=== PATIENT | female | born 1945 | race Caucasian/White ===

== ENCOUNTER 2016-10-24 18:44 | Inpatient (IN) | payer SELFPAY ==
[~2016-10-24] VITALS: Ht 162.6 cm; Wt 65.1 kg
[2016-10-24] MEDS ORDERED: NITROGLYCERIN 2% 1 GM OINT PKT TD STA (19:45)
[2016-10-24] MEDS ORDERED: ASPIRIN 325 MG TAB PO STA (19:45)
[2016-10-24] MEDS ORDERED: METO-448 PO (20:17)
[2016-10-24] MEDS ORDERED: BENA40TA41 PO (20:17)
[2016-10-24] MEDS ORDERED: ASPI-664 PO (20:18)
[2016-10-24 21:06] LABS: ADD SCAN DIFF NO
[2016-10-24 21:08] LABS: BASOPHILS % 0.4 % (0.0-2.0); EOSINOPHILS # 0.2 10^3/ul (0.0-0.5); EOSINOPHILS % 2.2 % (0.0-7.0); HEMOGLOBIN 12.3 g/dl (12.0-16.0); LYMPHOCYTES # 2.4 10^3/ul (0.8-2.9); LYMPHOCYTES % 30.5 % (15.0-51.0); MEAN CORPUSCULAR HEMOGLOBIN 30.8 pg (29.0-33.0); MEAN CORPUSCULAR HGB CONC 33.2 g/dl (32.0-37.0); MEAN CORPUSCULAR VOLUME 92.5 fl (82.0-101.0); MEAN PLATELET VOLUME 9.5 fl (7.4-10.4); MONOCYTE # 0.6 10^3/ul (0.3-0.9); MONOCYTES % 7.6 % (0.0-11.0); NEUTROPHIL # 4.6 10^3/ul (1.6-7.5); PLATELET COUNT 272 10^3/UL (140-415); WHITE BLOOD COUNT 7.8 10^3/ul (4.8-10.8)
[2016-10-24 21:10] VITALS: TEMP 99.8
--- NOTE | 2016-10-24 21:12 | RADRPT ---
PROCEDURE: XR Chest. CLINICAL INDICATION: Chest Pain. TECHNIQUE: Single frontal view of the chest. COMPARISON: 12/30/2008. FINDINGS: Cardiomegaly. Atherosclerotic calcifications in the thoracic aorta. The patient body habitus and p ortable technique accentuates lung base pulmonary vascular markings. Likely changes of centrolobula r emphysema.. The lungs are clear. No signs of pleural fluid or pneumothorax are seen. The osseous s tructures and soft tissues are unremarkable. IMPRESSION: No evidence for active cardiopulmonary disease. RPTAT: [facility] Physician Kailyn Date Time Electronically viewed and signed by Physician Kailyn on 10/24/2016 21:12 RS/
[2016-10-24 21:42] LABS: ANION GAP 10 (8-16); BLOOD UREA NITROGEN 18 mg/dl (7-20); CALCIUM 9.5 mg/dl (8.4-10.2); CARBON DIOXIDE 27 mmol/L (21-31); CHLORIDE 107 mmol/L (97-110); CREATININE 0.91 mg/dl (0.44-1.00); GLUCOSE 118 mg/dl (70-220); SODIUM 140 mmol/L (135-144)
--- NOTE | 2016-10-24 21:52 | ERA ---
ER Documentation Chief Complaint Date/Time DATE: 10/24/16 TIME: 21:48 Chief Complaint chest pain radaiting to right face and neck x 1 day HPI This is a 70-year-old female is complaining of chest pain today described as a chest pressure that radiates up the right side of her neck into her right jaw. She also has symptoms of shortness of breath and a little bit of dizziness. No palpitations or syncope. No diaphoresis. Denies any recent cough or trauma. She currently is pain-free. ROS All systems reviewed and are negative except as per history of present illness. Medications Home Meds Reported Medications Aspirin* (Aspirin* EC) 81 Mg Tablet.dr, 81 MG PO QHS, TAB 10/24/16 Benazepril Hcl* (Benazepril Hcl*) 40 Mg Tablet, 40 MG PO DAILY Y for PRN, #30 TAB 10/24/16 Metoprolol Tartrate* (Lopressor*) 25 Mg Tab, 25 MG PO BID, #60 TAB 10/24/16 Allergies Allergies: Coded Allergies: No Known Allergy (Verified , 10/24/16) PMhx/Soc Medical and Surgical Hx: pt denies Surgical Hx Hx Cardiac Disorders: Yes (HTN) Hx Alcohol Use: No Hx Substance Use: No Hx Tobacco Use: Yes (5 cig a day) Smoking Status: Current every day smoker FmHx Family History: No coronary disease Physical Exam Vitals Vital Signs Date Time Temp Pulse Resp B/P Pulse Ox O2 Delivery O2 Flow Rate FiO2 10/24/16 18:49 99.8 65 20 186/86 97 Physical Exam Const: Well-developed, well-nourished Head: Atraumatic, normocephalic Eyes: Normal Conjunctiva, PERRLA, EOMI, normal sclera, no nystagmus ENT: Normal External Ears, Nose and Mouth, moist mucus membranes. Neck: Full range of motion. No meningismus, no lymphadenopathy. Resp: Clear to auscultation bilaterally, no wheezing, rhonchi, rales Cardio: Regular rate and rhythm, no murmurs, S1 S2 present Abd: Soft, non tender x 4, non distended. Normal bowel sounds, no guarding or rebound, no pulsitile abdominal masses or bruits Skin: No petechiae or rashes, no ecchymosis , no maculopapular rash Back: No midline or flank tenderness Ext: No cyanosis, or edema, FROM x 4, normal inspection, neurovascularly intact x 4 Neur: Awake and alert, STR 5/5 x 4, sensation intact x 4, no focal findings, cerebellum intact Psych: Normal Mood and Affect Result Diagram: 10/24/161944 Results 24 hrs Laboratory Tests Test 10/24/16 19:45 White Blood Count 7.810^3/ul Red Blood Count 4.0010^6/ul Hemoglobin 12.3g/dl Hematocrit 37.0% Mean Corpuscular Volume 92.5fl Mean Corpuscular Hemoglobin 30.8pg Mean Corpuscular Hemoglobin Concent 33.2g/dl Red Cell Distribution Width 14.0% Platelet Count 85802^3/UL Mean Platelet Volume 9.5fl Neutrophils % 59.0% Lymphocytes % 30.5% Monocytes % 7.6% Eosinophils % 2.2% Basophils % 0.4% Nucleated Red Blood Cells % 0.0/100WBC Neutrophils # 4.610^3/ul Lymphocytes # 2.410^3/ul Monocytes # 0.610^3/ul Eosinophils # 0.210^3/ul Basophils # 0.010^3/ul Nucleated Red Blood Cells # 0.010^3/ul Current Medications Medications (Trade) Dose Ordered Sig/Alfredo Route PRN Reason Start Time Stop Time Status Last Admin Dose Admin Aspirin (Aspirin) 325 mg ONCE STAT PO 10/24/16 19:45 10/24/16 19:48 DC 10/24/16 20:37 Nitroglycerin (Nitroglycerin 2% Oint) 1 inch ONCE STAT TD 10/24/16 19:45 10/24/16 19:48 DC 10/24/16 20:37 Procedures/MDM EKG: Rate/Rhythm: Normal sinus rhythm heart rate 72, left bundle branch block QRS, ST, QT: NORMAL [place], QRS, QT] Impression: [Abnormal EKG PROCEDURE: XR Chest. CLINICAL INDICATION: Chest Pain. TECHNIQUE: Single frontal view of the chest. COMPARISON: 12/30/2008. FINDINGS: Cardiomegaly. Atherosclerotic calcifications in the thoracic aorta. The patient body habitus and portable technique accentuates lung base pulmonary vascular markings. Likely changes of centrolobular emphysema.. The lungs are clear. No signs of pleural fluid or pneumothorax are seen. The osseous structures and soft tissues are unremarkable. IMPRESSION: No evidence for active cardiopulmonary disease. RPTAT: [facility] Juan Webber Physician Date Time Electronically viewed and signed by Juan Webber Physician on 10/24/2016 21:12 RS/ CC: LEO MARSHALL DO Patient's symptoms are concerning for cardiac cause will require inpatient workup and continuous monitoring. Further w/u for ischemia, arrhythmia, PE or dissection will be deferred to the inpatient team. Accepting Care Team: Current data and ongoing care discussed. Time: Time of admission Primary Provider: [XOXOXO] Consulting: [XOXOXO] Outstanding Data: none Departure Diagnosis: Primary Impression: Chest pain Qualified Code: R07.9 - Chest pain, unspecified type Condition: Stable LEO MARSHALL DO Oct 24, 2016 21:52
[2016-10-24 21:56] LABS: TROPONIN-I < 0.012 ng/ml (0.00-0.12)
[2016-10-24] MEDS ORDERED: ACETAMINOPHEN 325 MG TAB PO PRN ×2 (22:00→22:30)
[2016-10-24] MEDS ORDERED: ONDANSETRON 4 MG INJ IV PRN (22:00)
--- NOTE | 2016-10-24 22:13 | HP ---
Date/Time of Note Date/Time of Note DATE: 10/24/16 TIME: 22:12 Assessment/Plan VTE Prophylaxis VTE Prophylaxis Intervention: SCD's Lines/Catheters IV Catheter Type (from Nrsg): Saline Lock Assessment/Plan Chief Complaint/Hosp Course This is a 70 female being admitted to the telemetry floor for: #1 chest pain: rule out acs versus stress. No current chest pain at this time. Trend cardiac enzymes, first set negative. EKG shows left bundle branch block. Echo in the AM. Cardiology consult. #2 HTN: continue home meds. Monitor. #3 history of breast cancer: Stable. Follow-up as outpatient is indicated with hematology. #4 DVT and GI prophylaxis: SCDs, Protonix Problems: HPI/ROS Admit Date/Time Admit Date/Time Hx of Present Illness Chief complaint: Chest pain This is a 70-year-old female is complaining of chest pain today described as a chest pressure that radiated up the right side of her neck into her right jaw. She also had symptoms of shortness of breath and a little bit of dizziness. This episode only occurred one time. No palpitations or syncope. No diaphoresis. Denies any recent cough or trauma. She currently is pain-free. Patient does state that she has been dealing with stress at work lately. Allergies: NKDA Medications: See JOHN MADRID Const: As per HPI Eyes : No pain discharge or redness or change in visual acuity ENT: No pain, sore throat, congestion, congestion, dysphagia or discharge Respiratory: As per HPI Cardiovascular: As per HPI GI : no change in appetite, abdominal pain, nausea, vomiting, diarrhea, constipation, or change in the color his stool Genitourinary: No dysuria, hematuria, flank pain , discharge or CVA tenderness Musculoskeletal: No joint pain, back pain, neck pain, restricted range of motion in neck or joints Skin: No rash, bruising or hives Neuro: No headache, dizziness, syncope, seizure, focal weakness Endocrine: No polyuria, polydipsia, temperature intolerance Psych: No hallucination, depression, anxiety or suicidal ideation PMH/Family/Social Past Medical History Breast cancer, hypertension Past Surgical History Right breast lumpectomy 2009 Family History Significant Family History: cancer (Mom: Cervical cancer), hypertension (Mom) Social History Alcohol Use: none Smoking Status: Current every day smoker (5 cigarettes a day 40 years) Drug Use: none Exam/Review of Systems Vital Signs Vitals Vital Signs Date Time Temp Pulse Resp B/P Pulse Ox O2 Delivery O2 Flow Rate FiO2 10/24/16 18:49 99.8 65 20 186/86 97 Exam Exam General: Patient is a pleasant 70-year-old female laying in bed in no acute distress. HEENT: Atraumatic, normocephalic. The pupils are equal, round and reactive. Extraocular motor are intact Neck: Supple with full range of motion. No rigidity or meningismus Chest: Nontender Lungs: Clear to auscultation bilaterally no crackles rales or wheezing Heart: Normal S1-S2, Regular rhythm and rate. No appreciable murmur Abdomen: Soft , nontender, nondistended , bowel sounds are present. No guarding no rebound tenderness , No masses or organomegaly. No costovertebral temporal angle mass Extremities: Normal to inspection, no edema no cyanosis Neurologic: Normal mental status, speech normal, cranial nerves II through XII are intact, motor and sensory are intact, no focal weakness Additional Comments EKG: Rate/Rhythm: Normal sinus rhythm heart rate 72, left bundle branch block QRS, ST, QT: NORMAL [place], QRS, QT] I as per ED physician documentation PROCEDURE: XR Chest. CLINICAL INDICATION: Chest Pain. TECHNIQUE: Single frontal view of the chest. COMPARISON: 12/30/2008. FINDINGS: Cardiomegaly. Atherosclerotic calcifications in the thoracic aorta. The patient body habitus and portable technique accentuates lung base pulmonary vascular markings. Likely changes of centrolobular emphysema.. The lungs are clear. No signs of pleural fluid or pneumothorax are seen. The osseous structures and soft tissues are unremarkable. IMPRESSION: No evidence for active cardiopulmonary disease. RPTAT: [facility] Physician Kailyn Date Time Electronically viewed and signed by Physician Kailyn on 10/24/2016 21:12 Labs Result Diagram: 10/24/16194410/24/161944 ZOE KEVIN Oct 24, 2016 22:13
[2016-10-24] MEDS ORDERED: morphine 2 MG INJ IV PRN (22:30)
[2016-10-24] MEDS ORDERED: DOCUSATE SODIUM 100 MG CAP PO PRN (22:30)
[2016-10-24] MEDS ORDERED: BISACODYL (EC) 5 MG TAB PO PRN (22:30)
[2016-10-24] MEDS ORDERED: BENAZEPRIL 40 MG TAB PO PRN (22:30)
[2016-10-24] MEDS ORDERED: NACL 0.9% 3 ML SYG IV SCH (22:30)
[2016-10-24 23:05] VITALS: PULSE 56
[2016-10-24] MEDS: SOD CHLORIDE 0.9% 1,000 ML IV SCH (23:42)
[2016-10-24] MEDS: METOPROLOL 25 MG TAB PO SCH (23:56)
[2016-10-25] VITALS (11 sets, daily range): BP systolic 166–209; BP diastolic 77–102; PULSE 53–60; RESP 19; Ht 162.6 cm; Wt 65.1 kg
[2016-10-25 01:44] LABS: CREATINE KINASE 35 IU/L (23-200)
[2016-10-25 01:55] LABS: CK-MB 0.79 ng/ml (0.0-2.4)
[2016-10-25 02:47] LABS: TROPONIN-I < 0.012 ng/ml (0.00-0.12)
[2016-10-25] MEDS: PANTOPRAZOLE (EC) 40 MG TAB PO SCH (06:16)
[2016-10-25 07:53] LABS: ADD SCAN DIFF NO
[2016-10-25 08:01] LABS: BASOPHILS % 0.4 % (0.0-2.0); EOSINOPHILS # 0.1 10^3/ul (0.0-0.5); EOSINOPHILS % 0.8 % (0.0-7.0); HEMATOCRIT 37.8 % (37.0-47.0); HEMOGLOBIN 12.4 g/dl (12.0-16.0); LYMPHOCYTES # 1.1 10^3/ul (0.8-2.9); LYMPHOCYTES % 11.2 % (15.0-51.0); MEAN CORPUSCULAR HEMOGLOBIN 30.5 pg (29.0-33.0); MEAN CORPUSCULAR HGB CONC 32.8 g/dl (32.0-37.0); MEAN CORPUSCULAR VOLUME 93.1 fl (82.0-101.0); MONOCYTE # 0.4 10^3/ul (0.3-0.9); MONOCYTES % 4.1 % (0.0-11.0); NEUTROPHIL # 8.5 10^3/ul (1.6-7.5); NEUTROPHILS % 83.2 % (39.0-77.0); PLATELET COUNT 271 10^3/UL (140-415); RED BLOOD COUNT 4.06 10^6/ul (4.20-5.40); RED CELL DISTRIBUTION WIDTH 13.8 % (11.5-14.5); WHITE BLOOD COUNT 10.2 10^3/ul (4.8-10.8)
[2016-10-25] MEDS: METOPROLOL 25 MG TAB PO SCH ×2 (09:43→20:44)
[2016-10-25 09:49] LABS: CREATINE KINASE 37 IU/L (23-200)
[2016-10-25 09:54] LABS: ALBUMIN 4.3 g/dl (3.3-4.9); ALBUMIN/GLOBULIN RATIO 2.04; BILIRUBIN,INDIRECT 0.3 mg/dl (0-1.1); BILIRUBIN,TOTAL 0.3 mg/dl (0.2-1.3); CALCIUM 8.9 mg/dl (8.4-10.2); CHOL/HDL RATIO 4.2 RATIO; CREATININE 0.75 mg/dl (0.44-1.00); MAGNESIUM 1.6 mg/dl (1.7-2.5); POTASSIUM 4.4 mmol/L (3.5-5.1); TOTAL PROTEIN 6.4 g/dl (6.1-8.1)
[2016-10-25 10:01] LABS: CK-MB 0.82 ng/ml (0.0-2.4)
[2016-10-25 10:03] LABS: TROPONIN-I < 0.012 ng/ml (0.00-0.12)
[2016-10-25 12:49] LABS: THYROID STIMULATING HORMONE 0.465 MIU/L (0.465-4.680)
[2016-10-25] MEDS: SOD CHLORIDE 0.9% 1,000 ML IV SCH (13:28)
[2016-10-25] MEDS ORDERED: MAGNESIUM SULFATE 2 GM/50 ML 50 ML IVPB ONE (13:30)
--- NOTE | 2016-10-25 18:22 | CONS ---
Date/Time of Note Date/Time of Note DATE: 10/25/16 TIME: 18:17 Assessment/Plan Assessment/Plan Chief Complaint/Hosp Course IMp: 1. Chest pain-atypical 2. Bradycardia 3. HTN-uncontrolled 4.H/O breast ca Recc: -tele -serial ecg's -DONY -start standing anti-hypertensives -chcek fasting lipid panel -PRN SL NTG -check echo -will consider stress for ongoing sx Problems: Consultation Date/Type/Reason Admit Date/Time Date of Consultation: Oct 25, 2016 Type of Consultation: cardiology Reason for Consultation chest pain Referring Provider: JAYCOB NIETO Hx of Present Illness 70 y/o female with h/o HTN, breast ca p/w cp, poorly described, at rest with radiation to face. NO longer having chest pain at thie time. Trop negative. NO ECG in chart for my review Constitutional: no complaints Eyes: no complaints ENT: no complaints Respiratory: no complaints Cardiovascular: chest pain Gastrointestinal: no complaints Genitourinary: no complaints Musculoskeletal: bone/joint pain Skin: no complaints Neurologic: no complaints Endocrine: no complaints Past Medical History Medical History: hypertension, other (breast ca) Past Surgical History Past Surgical Hx: no surgical history Family History Significant Family History: no pertinent family hx Social History Alcohol Use: none Smoking Status: Current every day smoker (5 cigarettes a day 40 years) Drug Use: none Exam/Review of Systems Vital Signs Vitals Vital Signs Date Time Temp Pulse Resp B/P Pulse Ox O2 Delivery O2 Flow Rate FiO2 10/25/16 16:00 60 10/25/16 14:00 Bag Valve Mask 10/25/16 11:43 98.3 19 174/81 98 Intake and Output 10/24/16 10/24/16 10/25/16 15:00 23:00 07:00 Output Total 200 ml Balance -200 ml Exam Constitutional: alert Psych: no complaints Head: normocephalic ENMT: mucosa pink and moist Neck: jvd (9 cm water), supple Respiratory: diminished breath sounds (at bases/B) Cardiovascular: regular rate and rhythm Gastrointestinal: non-tender, soft Musculoskeletal: muscle tone (normal) Extremities: edema (none) Results Result Diagram: 10/25/16 0702 10/25/16 0702 Results 24 hrs Laboratory Tests Test 10/24/16 19:45 10/25/16 00:40 10/25/16 07:02 White Blood Count 7.8 10.2 # Red Blood Count 4.00 L 4.06 L Hemoglobin 12.3 12.4 Hematocrit 37.0 37.8 Mean Corpuscular Volume 92.5 93.1 Mean Corpuscular Hemoglobin 30.8 30.5 Mean Corpuscular Hemoglobin Concent 33.2 32.8 Red Cell Distribution Width 14.0 13.8 Platelet Count 272 271 Mean Platelet Volume 9.5 10.0 Neutrophils % 59.0 83.2 H Lymphocytes % 30.5 11.2 L Monocytes % 7.6 4.1 Eosinophils % 2.2 0.8 Basophils % 0.4 0.4 Nucleated Red Blood Cells % 0.0 0.0 Neutrophils # 4.6 8.5 H Lymphocytes # 2.4 1.1 Monocytes # 0.6 0.4 Eosinophils # 0.2 0.1 Basophils # 0.0 0.0 Nucleated Red Blood Cells # 0.0 0.0 Sodium Level 140 138 Potassium Level 4.0 4.4 Chloride Level 107 108 Carbon Dioxide Level 27 22 Anion Gap 10 12 Blood Urea Nitrogen 18 15 Creatinine 0.91 0.75 Glucose Level 118 132 Calcium Level 9.5 8.9 Troponin I < 0.012 < 0.012 < 0.012 Creatine Kinase 35 37 Creatine Kinase Index 2.3 2.2 Creatinine Kinase MB (Mass) 0.79 0.82 Magnesium Level 1.6 L Total Bilirubin 0.3 Direct Bilirubin 0.00 Indirect Bilirubin 0.3 Aspartate Amino Transf (AST/SGOT) 17 Alanine Aminotransferase (ALT/SGPT) 27 Alkaline Phosphatase 125 H Total Protein 6.4 Albumin 4.3 Globulin 2.10 Albumin/Globulin Ratio 2.04 Triglycerides Level 160 H Cholesterol Level 156 LDL Cholesterol, Calculated 87 HDL Cholesterol 37 Cholesterol/HDL Ratio 4.2 Thyroid Stimulating Hormone (TSH) 0.465 Medications Medications Current Medications Aspirin (Halfprin) 81 mg QHS PO ; Start 10/25/16 at 21:00 Benazepril HCl 40 mg 40 mg DAILY PRN PO PRN Last administered on 10/25/16 05: 06; Admin Dose 40 MG; Start 10/24/16 at 22:30 Sodium Chloride (NS) 1,000 ml @ 70 mls/hr [id number] IV Last administered on 10/25 13:28; Admin Dose 70 MLS/HR; Start 10/24/16 at 22:07 Acetaminophen (Tylenol Tab) 650 mg Q6H PRN PO PAIN LEVEL 1-3 OR FEVER; Start at 22:30 Morphine Sulfate (morphine) 2 mg Q4H PRN IV PAIN LEVEL 7-10; Start 10/24/16 at 22:30 Docusate Sodium (Colace) 100 mg Q12H PRN PO CONSTIPATION; Start 10/24/16 at 22: 30 Bisacodyl (Dulcolax) 5 mg DAILY PRN PO CONSTIPATION; Start 10/24/16 at 22:30 Pantoprazole (Protonix Tab) 40 mg DAILY@06 PO Last administered on 10/25/16t 06 :16; Admin Dose 40 MG; Start 10/25/16 at 06:00 Metoprolol Tartrate (Lopressor) 12.5 mg BID PO ; Start 10/25/16 at 21:00 RADHA DORAN Oct 25, 2016 18:22
[2016-10-25] MEDS ORDERED: hydrALAzine 20 MG INJ IV PRN (18:30)
[2016-10-25] MEDS ORDERED: NITROGLYCERIN (SL) 0.4 MG TAB SL PRN (18:30)
--- NOTE | 2016-10-25 20:03 | RADRPT ---
Echocardiogram Report Patient Name: JUANCHO BAUM Gender: Female Date: 1945 Study Date: 25-Oct-2016 Jointer Machine: Shree Leal [facility] Location: [id number] Ref. Physician: ZOE KEVIN Quality: Adequate Procedures: Transthoracic echocardiogram with complete 2D, M-Mode, and doppler examination. Indications: Chest Pain. 2D/M Mode Doppler Measurement Value Normal Ranges Measurement Value Normal Ranges LVIDd 2D 4.7 3.5 - 5.6 cm DENYS Vmax 1.4 cm2 LVIDs 2D 2.8 2.1 - 4.1 cm DENYS VTI 1.5 cm2 FS 2D 39.8 % AV Mean Abhijeet 1.4 m/sec LVPWd 2D 1.0 0.6 - 1.1 cm AV Mean PG 9.0 mmHg IVSd 2D 1.3 0.6 - 1.1 cm AV Peak Abhijeet 2.0 m/sec IVS/LVPW 2D 1.3 AV Peak PG 16.0 mmHg AoR Diam 2D 2.5 2.0 - 3.7 cm AV VTI 48.2 cm LA/Ao 2D 1 0 - 1 LVOT Mean Abhijeet 1.0 m/sec EDV 2D 105.0 cm3 LVOT Mean PG 5.0 mmHg ESV 2D 22.9 cm3 LVOT Peak Abhijeet 1.4 m/sec LA Dimen 2D 3.0 2.3 - 4.0 cm LVOT Peak PG 8.0 mmHg LVOT Diam 1.6 cm LVOT VTI 34.8 cm LVOT Area 2.0 cm2 MV E Peak Abhijeet 0.7 m/sec MV A Peak Abhijeet 1.1 m/sec MV E/A 0.6 MV Decel Time 211 msec MV E/A 0.6 TR Peak Abhijeet 2.7 m/sec TR Peak PG 30.0 mmHg RVSP 33.0 mmHg Findings Left Ventricle: Normal left ventricular systolic function. Normal left ventricular cavity size. Moderate concentric left ventricular hypertrophy. Ejection fraction is visually estimated at 60 %. Tissue Doppler/Mitral Doppler indices are consistent with impaired relaxation (Stage I diastolic dysfunction). Right Ventricle: Normal right ventricular size. Normal right ventricular systolic function. Left Atrium: The left atrium is normal in size. Right Atrium: The right atrium is normal in size. Mitral Valve: Mitral valve leaflets appear mildly thickened. Mild mitral annular calcification. Trace mitral regurgitation. Aortic Valve: Aortic valve Max velocity 2.00 m/sec. Max PG 16.00 mmHg. Mean PG 9.00 mmHg. Aortic valve area 1.45 cm2. Aortic sclerosis without stenosis. Trace aortic valve regurgitation. Tricuspid Valve: Normal appearance of the tricuspid valve. Estimated peak PA systolic pressure 33 mmHg. There is mild tricuspid regurgitation. Pulmonic Valve: Normal pulmonic valve appearance. Pericardium: Normal pericardium with no significant pericardial effusion. Aorta: Normal aortic root. IVC: Normal size and normal respiratory collapse consistent with normal right atrial pressure. Conclusions 1.Normal left ventricular systolic function. Normal left ventricular cavity size. Moderate concentric left ventricular hypertrophy. Ejection fraction is visually estimated at 60 %. Tissue Doppler/Mitral Doppler indices are consistent with impaired relaxation (Stage I diastolic dysfunction). 2.Mitral valve leaflets appear mildly thickened. Mild mitral annular calcification. Trace mitral regurgitation. 3.Aortic valve Max velocity 2.00 m/sec. Max PG 16.00 mmHg. Mean PG 9.00 mmHg. Aortic valve area 1.45 cm2. Aortic sclerosis without stenosis. Trace aortic valve regurgitation. 4.Normal appearance of the tricuspid valve. Estimated peak PA systolic pressure 33 mmHg. There is mild tricuspid regurgitation. Electronically Signed By: Favian Chung 25-Oct-2016 20:02:41 -0700 Patient Name: JUANCHO BAUM Study Date: 25-Oct-2016 [id number]
--- NOTE | 2016-10-25 20:40 | PN ---
Date/Time of Note Date/Time of Note DATE: 10/25/16 TIME: 20:24 Assessment/Plan VTE Prophylaxis VTE Prophylaxis Intervention: SCD's Lines/Catheters IV Catheter Type (from Nrsg): Peripheral IV Urinary Cath still in place: No Assessment/Plan Assessment/Plan This is a 70 female being admitted to the telemetry floor for: #1 chest pain: ACS ruled out / abn ekg / ?stress test, await cardio recs #2 HTN: continue home meds. Monitor. #3 history of breast cancer: Stable. Follow-up as outpatient is indicated with hematology. #4 DVT and GI prophylaxis: SCDs, Protonix Subjective 24 Hr Interval Summary Free Text/Dictation patient states she has been having CP intermittently for a month lauri with exertion and is located in mid chest and radiates to back. She states it doesn' t feel like reflux pain. Exam/Review of Systems Vital Signs Vitals Vital Signs Date Time Temp Pulse Resp B/P Pulse Ox O2 Delivery O2 Flow Rate FiO2 10/25/16 19:51 98.5 55 19 170/82 96 10/25/16 14:00 Bag Valve Mask Intake and Output 10/24/16 10/24/16 10/25/16 15:00 23:00 07:00 Output Total 200 ml Balance -200 ml Exam Constitutional: alert, oriented Head: atraumatic, normocephalic Neck: non-tender, supple Respiratory: clear to auscultation Cardiovascular: regular rate and rhythm Gastrointestinal: nl liver, spleen, non-tender, soft Extremities: normal pulses Results Result Diagram: 10/25/16 0702 10/25/16 0702 Results 24 hrs Laboratory Tests Test 10/25/16 00:40 10/25/16 07:02 Creatine Kinase 35 37 Creatine Kinase Index 2.3 2.2 Creatinine Kinase MB (Mass) 0.79 0.82 Troponin I < 0.012 < 0.012 White Blood Count 10.2 # Red Blood Count 4.06 L Hemoglobin 12.4 Hematocrit 37.8 Mean Corpuscular Volume 93.1 Mean Corpuscular Hemoglobin 30.5 Mean Corpuscular Hemoglobin Concent 32.8 Red Cell Distribution Width 13.8 Platelet Count 271 Mean Platelet Volume 10.0 Neutrophils % 83.2 H Lymphocytes % 11.2 L Monocytes % 4.1 Eosinophils % 0.8 Basophils % 0.4 Nucleated Red Blood Cells % 0.0 Neutrophils # 8.5 H Lymphocytes # 1.1 Monocytes # 0.4 Eosinophils # 0.1 Basophils # 0.0 Nucleated Red Blood Cells # 0.0 Sodium Level 138 Potassium Level 4.4 Chloride Level 108 Carbon Dioxide Level 22 Anion Gap 12 Blood Urea Nitrogen 15 Creatinine 0.75 Glucose Level 132 Calcium Level 8.9 Magnesium Level 1.6 L Total Bilirubin 0.3 Direct Bilirubin 0.00 Indirect Bilirubin 0.3 Aspartate Amino Transf (AST/SGOT) 17 Alanine Aminotransferase (ALT/SGPT) 27 Alkaline Phosphatase 125 H Total Protein 6.4 Albumin 4.3 Globulin 2.10 Albumin/Globulin Ratio 2.04 Triglycerides Level 160 H Cholesterol Level 156 LDL Cholesterol, Calculated 87 HDL Cholesterol 37 Cholesterol/HDL Ratio 4.2 Thyroid Stimulating Hormone (TSH) 0.465 Medications Medications Current Medications Aspirin 81 mg 81 mg QHS PO ; Start 10/25/16 at 21:00 Sodium Chloride (NS) 1,000 ml @ 70 mls/hr [id number] IV Last administered on 10/25 13:28; Admin Dose 70 MLS/HR; Start 10/24/16 at 22:07 Acetaminophen (Tylenol Tab) 650 mg Q6H PRN PO PAIN LEVEL 1-3 OR FEVER; Start at 22:30 Morphine Sulfate (morphine) 2 mg Q4H PRN IV PAIN LEVEL 7-10; Start 10/24/16 at 22:30 Docusate Sodium (Colace) 100 mg Q12H PRN PO CONSTIPATION; Start 10/24/16 at 22: 30 Bisacodyl (Dulcolax) 5 mg DAILY PRN PO CONSTIPATION; Start 10/24/16 at 22:30 Pantoprazole (Protonix Tab) 40 mg DAILY@06 PO Last administered on 10/25/16 06 :16; Admin Dose 40 MG; Start 10/25/16 at 06:00 Metoprolol Tartrate (Lopressor) 12.5 mg BID PO ; Start 10/25/16 at 21:00 Benazepril HCl (Lotensin) 20 mg BID PO ; Start 10/25/16 at 21:00 Hydralazine HCl (Apresoline) 10 mg Q4H PRN IV SBP>170; Start 10/25/16 at 18:30 Nitroglycerin (Nitroglycerin (Sl Tab) 0.4 Mg) 1 tab Q5M PRN SL ANGINA; Start at 18:30 JAYCOB NIETO Oct 25, 2016 20:26
[2016-10-25] MEDS: BENAZEPRIL 20 MG TAB PO SCH (20:43)
[2016-10-25] MEDS ORDERED: ASPIRIN (EC) 81 MG TAB PO SCH (21:00)
[2016-10-25 23:02] LABS: ADD UMIC YES; UR ASCORBIC ACID NEGATIVE (NEGATIVE); UR BILIRUBIN (Dip) NEGATIVE (NEGATIVE); UR BLOOD (Dip) 1+ mg/dL (NEGATIVE); UR BUDDING YEAST FEW /HPF (NONE SEEN); UR CLARITY CLEAR (CLEAR); UR COLOR YELLOW (YELLOW); UR GLUCOSE (Dip) NEGATIVE (NEGATIVE); UR KETONES (Dip) NEGATIVE (NEGATIVE); UR LEUKOCYTE ESTERASE (Dip) NEGATIVE Leu/ul (NEGATIVE); UR NITRITE (Dip) NEGATIVE (NEGATIVE); UR RBC 3 /HPF (0-5); UR SPECIFIC GRAVITY (Dip) 1.012 (1.003-1.030); UR SQUAMOUS EPITHELIAL CELL FEW /HPF (FEW); UR TOTAL PROTEIN (Dip) NEGATIVE (NEGATIVE); UR UROBILINOGEN (Dip) NEGATIVE (NEGATIVE)
[2016-10-26] VITALS (12 sets, daily range): BP systolic 133–190; BP diastolic 71–94; PULSE 50–55; RESP 16–20
[2016-10-26] MEDS: SOD CHLORIDE 0.9% 1,000 ML IV SCH ×2 (03:16→17:06)
[2016-10-26] MEDS: PANTOPRAZOLE (EC) 40 MG TAB PO SCH (05:18)
[2016-10-26 07:58] LABS: CHOLESTEROL 149 mg/dl (100-200); HDL CHOLESTEROL 37 mg/dl (33-92); TRIGLYCERIDES 130 mg/dl (0-149)
[2016-10-26 08:11] LABS: TROPONIN-I < 0.012 ng/ml (0.00-0.12)
[2016-10-26] MEDS: METOPROLOL 25 MG TAB PO SCH (09:00)
[2016-10-26] MEDS: BENAZEPRIL 20 MG TAB PO SCH (09:06)
--- NOTE | 2016-10-26 10:38 | RADRPT ---
Vent Rate: 53 bpm RR Interval: 0 msec UT Interval: 156 msec QRS Duration: 156 msec QT Interval: 500 msec QTC Interval: 469 msec P-R-T [place]: 66 - 34 - 116 degrees Sinus bradycardia Left bundle branch block Abnormal ECG Electronically Signed By: Eduardo Li [id number]
--- NOTE | 2016-10-26 10:46 | PN ---
Date/Time of Note Date/Time of Note DATE: 10/26/16 TIME: 10:42 Assessment/Plan VTE Prophylaxis VTE Prophylaxis Intervention: SCD's Lines/Catheters IV Catheter Type (from Nrsg): Peripheral IV Urinary Cath still in place: No Assessment/Plan Assessment/Plan This is a 70 yo female being admitted to the telemetry floor for: #1 chest pain: ACS ruled out / abn ekg / bradycardia / stress test possibly today #2 HTN: continue home meds. Monitor. #3 history of breast cancer: Stable. Follow-up as outpatient is indicated with hematology. #4 DVT and GI prophylaxis: SCDs, Protonix Subjective 24 Hr Interval Summary Free Text/Dictation Patient seen and examined. stress test today Exam/Review of Systems Vital Signs Vitals Vital Signs Date Time Temp Pulse Resp B/P Pulse Ox O2 Delivery O2 Flow Rate FiO2 10/26/16 09:25 55 10/26/16 08:17 98.1 20 146/71 96 10/25/16 14:00 Bag Valve Mask Intake and Output 10/25/16 10/25/16 10/26/16 15:00 23:00 07:00 Intake Total 420 ml 720 ml 1170 ml Balance 420 ml 720 ml 1170 ml Exam Constitutional: alert, oriented Head: atraumatic, normocephalic Neck: non-tender, supple Respiratory: clear to auscultation Cardiovascular: regular rate and rhythm Gastrointestinal: nl liver, spleen, non-tender, soft Extremities: normal pulse Results Result Diagram: 10/25/16 0702 10/25/16 0702 Results 24 hrs Laboratory Tests Test 10/26/16 06:52 Troponin I < 0.012 Triglycerides Level 130 Cholesterol Level 149 LDL Cholesterol, Calculated 86 HDL Cholesterol 37 Cholesterol/HDL Ratio 4.0 Medications Medications Current Medications Aspirin 81 mg 81 mg QHS PO Last administered on 10/25/16 20:43; Admin Dose 81 MG; Start 10/25/16 at 21:00 Sodium Chloride (NS) 1,000 ml @ 70 mls/hr [id number] IV Last administered on 10/26 03:16; Admin Dose 70 MLS/HR; Start 10/24/16 at 22:07 Acetaminophen (Tylenol Tab) 650 mg Q6H PRN PO PAIN LEVEL 1-3 OR FEVER; Start at 22:30 Morphine Sulfate (morphine) 2 mg Q4H PRN IV PAIN LEVEL 7-10; Start 10/24/16 at 22:30 Docusate Sodium (Colace) 100 mg Q12H PRN PO CONSTIPATION; Start 10/24/16 at 22: 30 Bisacodyl (Dulcolax) 5 mg DAILY PRN PO CONSTIPATION; Start 10/24/16 at 22:30 Pantoprazole (Protonix Tab) 40 mg DAILY@06 PO Last administered on 10/26/16 05 :18; Admin Dose 40 MG; Start 10/25/16 at 06:00 Metoprolol Tartrate (Lopressor) 12.5 mg BID PO Last administered on 10/25/16 20:44; Admin Dose 12.5 MG; Start 10/25/16 at 21:00 Benazepril HCl (Lotensin) 20 mg BID PO Last administered on 10/26/16 09:06; Admin Dose 20 MG; Start 10/25/16 at 21:00 Hydralazine HCl (Apresoline) 10 mg Q4H PRN IV SBP>170; Start 10/25/16 at 18:30 Nitroglycerin (Nitroglycerin (Sl Tab) 0.4 Mg) 1 tab Q5M PRN SL ANGINA; Start at 18:30 JAYCOB NIETO Oct 26, 2016 10:45
[2016-10-26] MEDS ORDERED: NIT4 SL (19:00)
[2016-10-26] MEDS ORDERED: BENA40TA41 PO (19:00)
[2016-10-26] MEDS ORDERED: METO-448 PO (19:00)
--- NOTE | 2016-10-26 19:02 | PDOCDIS ---
Discharge Instructions DIAGNOSIS Discharge Diagnosis Chest pain and dizziness CONDITION Patient Condition: Stable HOME CARE INSTRUCTIONS: Diet Instructions: Low Fat /Cholesterol FOLLOW UP/APPOINTMENTS Follow-up Plan f/u with your PCP in 1-2 weeks for Cardiology refferal for Chest pain and dizziness, or call Dr Melissa's office for followup. REFERRALS Referring Provider: RADHA CHUNG Other Referrals Please followup with Dr Chung for cardiology Name, Degree: Radha Chung MD Specialty: Cardiology Comments: Office Address: [address] [place] [address] Office Office Inside Meter Tester: JAYCOB Joy Oct 26, 2016 19:02
[2016-10-26] MEDS ORDERED: FLUC200T52 PO (19:04)
--- NOTE | 2016-10-26 19:08 | DS ---
Date/Time of Note Date/Time of Note DATE: 10/26/16 TIME: 19:05 Discharge Summary Admission/Discharge Info Admit Date/Time Oct 24, 2016 at 21:55 Discharge Date/Time Discharge Diagnosis 1. Chest pain and dizziness: resolved 2. Hypertension: improved control 3. Asymptomatic bradycardia medication induced 4. Chronic tobacco abuse status post cessation counseling 5. Yeast urinary tract infection 6. Mild hypomagnesemia status post replacement 7. Mild hypertriglyceridemia for diet control 8. History of breast cancer stable for outpatient follow-up . Patient Condition: Stable Consults Cardiology: Juliet. . Procedures See hospital course . Hx of Present Illness Chief complaint: Chest pain This is a 70-year-old female is complaining of chest pain today described as a chest pressure that radiated up the right side of her neck into her right jaw. She also had symptoms of shortness of breath and a little bit of dizziness. This episode only occurred one time. No palpitations or syncope. No diaphoresis. Denies any recent cough or trauma. She currently is pain-free. Patient does state that she has been dealing with stress at work lately. Allergies: NKDA Medications: See MAR . Hospital Course 71-year-old female who presented October 24, 2016 with chest pain, shortness of breath and dizziness that have been intermittent for the last 4 months. She was admitted and ruled out for an acute coronary syndrome with 4 negative troponins. She was however found to have a mild hypertriglyceridemia however a chest x-ray and a 2D echocardiogram were essentially unremarkable. There was some mild aortic sclerosis without stenosis seen on echo. She was supposed to have a stress test today October 26, 2016 but unfortunately, the hospital's stress test machine is down; she is being discharged if okay with cardiology to get an outpatient stress test. Of note is that a urinalysis that was done to evaluate her dizziness came back positive for yeast and she is being discharged home with oral antifungal. She has been given the office information for Dr. Chung as she can follow up with him for her stress test outpatient or she could have her primary care doctor referred her to a unattended ground sensor specialist for the same. I have discussed with her and her family have discussed this plan of care and in agreement. The physical examination done today was benign. Of note is that the patient has a history of breast cancer for which she is status post right breast lumpectomy and she is a chronic smoker as well and she was counseled on the need to quit tobacco use. . Home Meds Active Scripts Fluconazole* (Fluconazole*) 200 Mg Tablet, 200 MG PO DAILY for 7 Days, TAB Prov:JAYCOB NIETO 10/26/16 Reported Medications Aspirin* (Aspirin* EC) 81 Mg Tablet.dr, 81 MG PO QHS, TAB 10/24/16 Benazepril Hcl* (Benazepril Hcl*) 40 Mg Tablet, 40 MG PO DAILY Y for PRN, #30 TAB 10/24/16 Metoprolol Tartrate* (Lopressor*) 25 Mg Tab, 25 MG PO BID, #60 TAB 10/24/16 Follow-up Plan See hospital course . Primary Care Provider Not On Staff Doctor Time spent on discharge: > 30 minutes Pending Labs Laboratory Tests Test 10/26/16 06:52 Troponin I < 0.012ng/ml (0.00-0.12) Triglycerides Level 130mg/dl (0-149) Cholesterol Level 149mg/dl (100-200) LDL Cholesterol, Calculated 86mg/dl HDL Cholesterol 37mg/dl (33-92) Cholesterol/HDL Ratio 4.0RATIJAYCOB GUERRERO Oct 26, 2016 19:08
--- NOTE | 2016-10-26 19:25 | CONS ---
Date/Time of Note Date/Time of Note DATE: 10/26/16 TIME: 19:23 Assessment/Plan Assessment/Plan Chief Complaint/Hosp Course IMp: 1. Chest [id number]-[id number]-zbgbnhtr trop x3/NL EF 2. Bradycardia 3. HTN-slowly iproving 4.H/O breast ca Recc: -tele -Continue BB/ACEI with slight uptitration donna improve BP control -PRN SL NTG -If no recurrent chest pain then d/c with outpatients stress testing Problems: Consultation Date/Type/Reason Admit Date/Time Oct 26, 2016 at 15:32 Initial Consult Date 10/25/16 Type of Consultation: cardiology Reason for Consultation chest pain Referring Provider: JAYCOB NIETO Exam/Review of Systems Vital Signs Vitals Vital Signs Date Time Temp Pulse Resp B/P Pulse Ox O2 Delivery O2 Flow Rate FiO2 10/26/16 16:37 54 10/26/16 16:23 98.5 20 174/83 98 10/25/16 14:00 Bag Valve Mask Intake and Output 10/25/16 10/25/16 10/26/16 15:00 23:00 07:00 Intake Total 420 ml 720 ml 1170 ml Balance 420 ml 720 ml 1170 ml Exam Review of Systems: CONSTITUTIONAL: No fevers, chills. PULMONARY: No sob CARDIOVASCULAR: No chest pain/palpitations GASTROINTESTINAL: No nausea/vomiting. GENITOURINARY: No hematuria/dysuria. MUSCULOSKELETAL: No myagias/arthalgias. PSYCHIATRIC: The patient denies depression. NEUROLOGIC: No weakness Constitutional: alert Psych: no complaints Head: normocephalic ENMT: mucosa pink and moist Neck: jvd (8 cm water), supple Respiratory: clear to auscultation Cardiovascular: regular rate and rhythm Gastrointestinal: non-tender, soft Extremities: edema (none) Neurological: other (No focal deficits) Results Result Diagram: 10/25/16 0702 10/25/16 0702 Results 24 hrs Laboratory Tests Test 10/26/16 06:52 Troponin I < 0.012 Triglycerides Level 130 Cholesterol Level 149 LDL Cholesterol, Calculated 86 HDL Cholesterol 37 Cholesterol/HDL Ratio 4.0 Medications Medications Current Medications Aspirin 81 mg 81 mg QHS PO Last administered on 10/25/16t 20:43; Admin Dose 81 MG; Start 10/25/16 at 21:00 Sodium Chloride (NS) 1,000 ml @ 70 mls/hr [id number] IV Last administered on 10/26 17:06; Admin Dose 70 MLS/HR; Start 10/24/16 at 22:07 Acetaminophen (Tylenol Tab) 650 mg Q6H PRN PO PAIN LEVEL 1-3 OR FEVER; Start at 22:30 Morphine Sulfate (morphine) 2 mg Q4H PRN IV PAIN LEVEL 7-10; Start 10/24/16 at 22:30 Docusate Sodium (Colace) 100 mg Q12H PRN PO CONSTIPATION; Start 10/24/16 at 22: 30 Bisacodyl (Dulcolax) 5 mg DAILY PRN PO CONSTIPATION; Start 10/24/16 at 22:30 Pantoprazole (Protonix Tab) 40 mg DAILY@06 PO Last administered on 10/26/16 05 :18; Admin Dose 40 MG; Start 10/25/16 at 06:00 Metoprolol Tartrate (Lopressor) 12.5 mg BID PO Last administered on 10/25/16 20:44; Admin Dose 12.5 MG; Start 10/25/16 at 21:00 Benazepril HCl (Lotensin) 20 mg BID PO Last administered on 10/26/16 09:06; Admin Dose 20 MG; Start 10/25/16 at 21:00 Hydralazine HCl (Apresoline) 10 mg Q4H PRN IV SBP>170; Start 10/25/16 at 18:30 Nitroglycerin (Nitroglycerin (Sl Tab) 0.4 Mg) 1 tab Q5M PRN SL ANGINA; Start at 18:30 RADHA DORAN Oct 26, 2016 19:25
[2016-10-26] MEDS ORDERED: BENAZEPRIL 20 MG TAB PO SCH (21:00)
== END 2016-10-26 20:30 | disposition home or self-care (01) | DRG 313 ==
LOC: E/R 18:44 → MS4 21:55 → OBSVTOIN 10-26 15:32
PROVIDERS: ADMIT Family Medicine; ATTEND Family Medicine
DX: R07.89 Other chest pain (principal); R00.1 Bradycardia, unspecified; E83.42 Hypomagnesemia; I10 Essential (primary) hypertension; B37.49 Other urogenital candidiasis; F17.210 Nicotine dependence, cigarettes, uncomplicated; E78.1 Pure hyperglyceridemia; R42 Dizziness and giddiness; Z82.49 Family history of ischemic heart disease and other diseases of the circulatory system; Z79.82 Long term (current) use of aspirin; Z85.3 Personal history of malignant neoplasm of breast; T50.905A Adverse effect of unspecified drugs, medicaments and biological substances, initial encounter
CPT/HCPCS: 36415; 71010; 80048; 80053; 80061; 81001; 82550; 82553; 83735; 84443; 84484; 85025; 93005; 93306; G0378; J3475; J7030

== ENCOUNTER 2019-01-07 17:38 | Emergency (ER) | payer MEDICAID, OTHER ==
[~2019-01-07] VITALS: Wt 59.9 kg
[~2019-01-07 17:38] MED LIST: ASPI-817 PO; BENA40TA56 PO; FLUC200T52 PO; METO-448 PO; NITR0.4T39 SL
[2019-01-07] MEDS ORDERED: ACETAMINOPHEN 500 MG TAB PO STA (19:16)
[2019-01-07] MEDS ORDERED: IBUPROFEN 600 MG TAB PO ONE (19:30)
[2019-01-07 19:39] VITALS: BP 161/77; PULSE 81; RESP 20
== END 2019-01-07 19:39 | disposition home or self-care (01) ==
LOC: E/R 17:38
DX: M54.6 Pain in thoracic spine (principal); I10 Essential (primary) hypertension; F17.210 Nicotine dependence, cigarettes, uncomplicated; Z79.82 Long term (current) use of aspirin
CPT/HCPCS: 71045; 72100